=== PATIENT | female | born 1990 ===

== ENCOUNTER 2017-01-26 15:21 | Emergency (ER) | payer MEDICAID ==
[2017-01-26 15:59] VITALS: BP 126/77; PULSE 72; RESP 20; TEMP 97.8; O2SAT 100
--- NOTE | 2017-01-28 12:48 | C.PDOC ---
Time Seen by Provider: 01/26/17 16:00 Chief Complaint (Nursing): Female Genitourinary Past Medical History Vital Signs: Last Vital Signs Temp 97.8 F 01/26/17 15:56 Pulse 72 01/26/17 15:56 Resp 20 01/26/17 15:56 BP 126/77 01/26/17 15:56 Pulse Ox 100 01/28/17 12:48 - Medical History PMH: Anemia Family History: States: Unknown Family Hx - Social History Hx Alcohol Use: Yes Hx Substance Use: Yes (weed) - Immunization History Hx Tetanus Toxoid Vaccination: No Hx Influenza Vaccination: No Hx Pneumococcal Vaccination: No ED Course And Treatment O2 Sat by Pulse Oximetry: 100 Disposition - Disposition Disposition: ELOPEMENT - ER ONLY
== END 2017-01-26 16:07 | disposition left against medical advice (07) ==
LOC: C.ER 15:21
DX: L29.2 Pruritus vulvae (principal); Z02.9 Encounter for administrative examinations, unspecified